=== PATIENT | female | born 1970 | race Caucasian/White ===

== ENCOUNTER 2016-11-05 19:19 | Emergency (ER) | payer OTHER ==
--- NOTE | ~2016-11-05 | ER ---
PATIENT'S NAME: KAREL PATEL [facility] AGE: 46 Y [address] ROOM: [place] [address] LOCATION: [facility] ADMIT DATE: 11/05/2016 ER/Outpatient Report DISCHARGE DATE: 11/05/2016 FAMILY PHYSICIAN: PHYSICIAN, NO ATTENDING PHYSICIAN: Dillon Price Time of Arrival: Admission date and time documented on the medical record. Time of Evaluation: I saw the patient at 1935 hours. CHIEF COMPLAINT: Bruise, right breast. HISTORY OF PRESENT ILLNESS: This patient is a 46-year-old female, who this afternoon noticed a large bruise on the right breast mid upper quadrant about the size of a baseball. The patient denies any fall or trauma. Does not remember running into anything or getting hit. Does have a past history of right breast cancer in the lower outer quadrant of the right breast with lumpectomy. She underwent chemotherapy and radiation therapy. She had a mammogram that apparently was normal in July of this year. She usually has mammograms twice a year, the first being in July of the year and the second one in December of the same year. No recent cough, cold, flus, fever, chills, or sweats. No lightheadedness, dizziness, syncope, or near syncope. No headache or eyes, ears, nose, throat, neck, or spine pain. No chest pain, shortness of breath, abdominal pain, nausea, vomiting, diarrhea, or urinary complaints. No joint or muscle swelling, redness, or pain. No skin eruptions or rash. She does have anxiety and depression. No neuro changes or endocrine problems. HOME MEDICATIONS: See attached medication list. ALLERGIES: NONE. SOCIAL HISTORY: The patient smokes a half a pack of cigarettes per day, nondrinker. SIGNIFICANT PAST MEDICAL HISTORY: Right breast cancer, peripheral vascular disease, depression, anxiety, atherosclerotic ischemic heart disease with coronary artery disease, and tobacco abuse. OPERATIONS: Oral surgery, x2, right breast lumpectomy, chemotherapy and radiation therapy. PATIENT'S NAME: KAREL PATEL [facility] AGE: 46 Y [address] ROOM: [place] [address] LOCATION: [facility] ADMIT DATE: 11/05/2016 ER/Outpatient Report DISCHARGE DATE: 11/05/2016 FAMILY PHYSICIAN: PHYSICIAN, NO ATTENDING PHYSICIAN: Dillon Price REVIEW OF SYSTEMS: All systems reviewed by me are negative with the exception of those discussed in the history of the present illness. PHYSICAL EXAMINATION: VITAL SIGNS: Temperature 98.2, tympanic; pulse 67; respirations 16; blood pressure 125/68; and O2 saturation on room air was 98%. HEENT: Negative. LUNGS: Clear. HEART: Regular. ABDOMEN: Soft, nontender. Good bowel tones. BREASTS: No palpable masses in either breast. The patient has about a baseball sized ecchymotic area in the right inner upper quadrant of her right breast. There is no underlying mass or hematoma. No tenderness. The bruised area looks old, not fresh, like greater than 24 hours old, if not greater than 48 hours old. NEUROVASCULAR: Intact. SKIN: Clear. There is no other bruising. LABORATORY DATA: White count is 10,800, 65 segs, 24 lymphs, 7 monos, 3 eos, 1 baso; hemoglobin is 13.5 with hematocrit 40.6; platelet count is 309,000. Sedimentation rate was 16. PTT was 25, pro-time was 9.7, and INR 0.92. CMS was normal except for a slightly low potassium of 3.5, low calcium of 8.3, GGTP was 37. Liver enzymes were normal. CRP was 1.09. IMPRESSION: 1. Right inner upper quadrant bruise, right breast, etiology uncertain. It looks like a contusion type of injury without underlying hematoma or mass. There is no open wound or drainage. Liver enzymes and clotting factors were all normal. 2. Tobacco abuse. 3. History of right breast cancer status post right breast lumpectomy, followed by chemotherapy and radiation therapy. The patient is now in remission. 4. History of depression and anxiety. PLAN: The patient dismissed home. Observation. Activity as tolerated. Continue present home medications and care. Fluids and diet as tolerated. Follow up with personal physician as needed or as scheduled. Any changes, she should see her personal physician. At this point, she is to keep her scheduled mammogram in December unless otherwise recommended by her personal physician. Discussion ensued with the patient concerning my findings and recommendations, PATIENT'S NAME: KAREL PATEL [facility] AGE: 46 Y [address] ROOM: [place], [place] [address] LOCATION: [facility] ADMIT DATE: 11/05/2016 ER/Outpatient Report DISCHARGE DATE: 11/05/2016 FAMILY PHYSICIAN: SHAYAN SELLERS ATTENDING PHYSICIAN: Dillon Price she understands. MD LAURA LOMBARDO/nathaniell /[id number] d: 11/06/16 0042 t: 11/07/16 1805, OUTPATIENT REPORT
[2016-11-05 19:56] LABS: BASOPHIL # 0.1 K/uL (0.0-0.2); BASOPHIL % 0.5 %; EOSINOPHIL # 0.3 K/uL (0.0-0.5); EOSINOPHIL % 2.7 %; HEMATOCRIT 40.6 % (33.0-46.0); HEMOGLOBIN 13.5 g/dL (10.0-15.0); IMMATURE GRANULOCYTE % 0.1 %; LYMPHOCYTE # 2.6 K/uL (0.8-4.0); LYMPHOCYTE % 24.2 %; MCH 30.2 pg (27.0-34.0); MCHC 33.3 gm/dL (32.0-36.5); MCV 90.8 fl (83.0-98.0); MONOCYTE # 0.8 K/uL (0.0-1.0); MONOCYTE % 7.3 %; MPV 9.4 fl (9.4-12.4); NEUTROPHIL # (ANC) 7.1 K/uL (1.8-7.8); NEUTROPHIL % 65.2 %; NRBC % 0 /100WBC (0-0.00); PLATELET COUNT 309 K/uL (150-450); RBC 4.47 M/uL (3.50-5.50); RDW-CV 13.5 % (11.9-14.6); WBC 10.8 K/uL (4.0-11.0)
[2016-11-05 20:06] LABS: INR - (THERAPEUTIC) 0.92 (0.92-1.07); PROTIME 9.7 SECONDS (9.8-11.4); PTT 25 SECONDS (25-32)
[2016-11-05 20:19] LABS: ALBUMIN 3.2 gm/dL (3.5-5.0); ANION GAP 10.5 (10.0-19.0); CALCIUM 8.3 mg/dL (8.5-10.5); POTASSIUM 3.5 mMol/L (3.7-5.1); TOTAL BILIRUBIN 0.3 mg/dL (0.0-1.5); TOTAL PROTEIN 7.2 g/dL (6.0-8.4)
== END 2016-11-05 20:57 | disposition disaster alternative care site (69) ==
LOC: GMED 19:19
PROVIDERS: Emergency Medicine
DX: S20.01XA Contusion of right breast, initial encounter (principal); F17.210 Nicotine dependence, cigarettes, uncomplicated; F41.9 Anxiety disorder, unspecified; F32.9 Major depressive disorder, single episode, unspecified; C50.511 Malignant neoplasm of lower-outer quadrant of right female breast; I25.10 Atherosclerotic heart disease of native coronary artery without angina pectoris; Z98.890 Other specified postprocedural states; Z79.82 Long term (current) use of aspirin; Z79.899 Other long term (current) drug therapy; X58.XXXA Exposure to other specified factors, initial encounter